=== PATIENT | male | born 1990 | race African-American/Black ===

== ENCOUNTER 2018-10-02 03:11 | Emergency (ER) | payer BC ==
[~2018-10-02] VITALS: Ht 180.3 cm; Wt 72.0 kg
[2018-10-02] MEDS ORDERED: potassium Cl 20 mEq SR tablet PO STA (03:30)
[2018-10-02] MEDS ORDERED: insulin regular, human 10 units/0.1 ml syringe IV ONE (03:30)
--- NOTE | 2018-10-02 04:27 | NUR ---
PT SLEEPING EN ROUTE TO CT. UPON RETURN TO ROOM, DRAMATICS START WHEN FAMILY AT BEDSIDE
[2018-10-02 04:47] VITALS: BP 121/70
[2018-10-02] MEDS ORDERED: bacitracin 15gm ointment TP ONE (05:05)
[2018-10-02] MEDS ORDERED: TETanus/Pertussis (Acell)/Diphther VAC/PF (Tdap-Adult) 0.5ml syringe IM ONE (05:05)
== END 2018-10-02 05:14 | disposition home or self-care (01) ==
LOC: ER 03:12
DX: S01.81XA Laceration without foreign body of other part of head, initial encounter (principal); Y08.89XA Assault by other specified means, initial encounter; Y93.02 Activity, running; Y92.89 Other specified places as the place of occurrence of the external cause; Y99.8 Other external cause status
CPT/HCPCS: 12014; 70450; 72125; 90471; 90715; 99284

== ENCOUNTER 2018-10-04 10:50 | Emergency (ER) | payer BC, OTHER ==
[~2018-10-04] VITALS: Ht 177.8 cm; Wt 75.0 kg
[2018-10-04 11:12] VITALS: BP 127/79
== END 2018-10-04 12:12 | disposition home or self-care (01) ==
LOC: ER 10:50
DX: S01.81XD Laceration without foreign body of other part of head, subsequent encounter (principal); F12.90 Cannabis use, unspecified, uncomplicated; Y08.89XD Assault by other specified means, subsequent encounter
CPT/HCPCS: 99283

== ENCOUNTER 2019-01-14 07:25 | Emergency (ER) | payer OTHER ==
[~2019-01-14] VITALS: Ht 180.3 cm; Wt 68.0 kg
[2019-01-14 07:29] VITALS: BP 142/90
[2019-01-14] MEDS ORDERED: acetaminophen 325mg tablet PO ONE (08:35)
[2019-01-14] MEDS ORDERED: bacitracin 15gm ointment TP ONE (08:35)
== END 2019-01-14 09:05 ==
LOC: ER 07:26
DX: S06.0X0A Concussion without loss of consciousness, initial encounter (principal); S00.03XA Contusion of scalp, initial encounter; S00.81XA Abrasion of other part of head, initial encounter; S80.811A Abrasion, right lower leg, initial encounter; H10.213 Acute toxic conjunctivitis, bilateral; T50.995A Adverse effect of other drugs, medicaments and biological substances, initial encounter; F10.129 Alcohol abuse with intoxication, unspecified; F12.90 Cannabis use, unspecified, uncomplicated; Y35.811A Legal intervention involving manhandling, law enforcement official injured, initial encounter; Y93.89 Activity, other specified; Y92.512 Supermarket, store or market as the place of occurrence of the external cause; Y99.8 Other external cause status
CPT/HCPCS: 70450; 70486; 99285